=== PATIENT | male | born 1935 | race Caucasian/White ===

== ENCOUNTER 2017-08-24 12:13 | Emergency (ER) | payer OTHER ==
[2017-08-24] MEDS ORDERED: IBUPROFEN 400 MG TAB ONE (14:03)
--- NOTE | 2017-08-24 14:32 | RAD REPORT ---
EXAM DESCRIPTION: CT - Stone Protocol - 08/24/2017 1:57 pm CLINICAL HISTORY: Fall, right-sided back and flank pain COMPARISON: Two-view chest exam April 29, 2015 TECHNIQUE: CT imaging of the abdomen was performed without oral or IV contrast. All CT scans are performed using dose optimization technique as appropriate and may include automated exposure control or mA/KV adjustment according to patient size. FINDINGS: No pneumothorax or pleural effusion. Fibrotic lung changes are present. Minimal pleural th ickening identified. Posterior right twelfth rib is fractured. There is a fracture of the right trans verse process at L2. Prominent facet joint degenerative change throughout the lumbar spine. No pars d efects seen. . Approximately 30% compression fracture deformity of the T12 body is present. Posterior wall height is preserved. The wedging is slightly worse than 2016. Given the recent trauma history, worsening of a preexisting fracture is possible. Liver and spleen show no suspicious findings. Very little pancreatic tissue is present with a pronou nced fatty replacement pattern seen. Gallbladder and biliary tree are also without suspicious finding . No hydronephrosis or suspicious mass in either kidney. Isodense masses and pyelonephritis are not exc luded. A 3.2 centimeter round low-attenuation mass lower pole right kidney is believed to be an incid ental cyst. Areas of cortical thinning are seen in the lateral and superior right kidney. No retroper itoneal hematoma. Paraspinal musculature and oblique abdominal wall musculature show no acute finding s. No traumatic injury to the bowel. No free peritoneal or retroperitoneal fluid or hematoma. No free ai r, free fluid or inflammatory stranding. No hernia, mass or bulky lymphadenopathy. No pathologic bone process identifiable. SI joint degenerative changes are present. No sacral ala fra ctures seen. No proximal femur fracture identified. Overall exam sensitivity is decreased when no contrast is administered. IMPRESSION: Posterior right twelfth rib fracture and right side L2 transverse process fracture. Approximately 30% wedge compression deformity of the T12 body with posterior wall height preserved. T he compression is not new but may be progressive from April 2015. No encroachment into the central canal. No pneumothorax or pleural fluid collection. No acute injury to the solid abdominal visceral or bowel . Very little pancreatic tissue remaining. There is pronounced fatty replacement of the pancreatic tiss ue.
--- NOTE | 2017-08-24 14:38 | ER ---
Nurse's Notes [facility] Name: Louis Rodriguez Age: 81 yrs Sex: Male : 1935 Arrival Date: 08/24/2017 Time: 12:20 Bed 12 Private MD: Diagnosis: Abdominal tenderness;Fall due to bumping against object;Fracture of one rib, right side;Fracture of second lumbar vertebra-Transverse process fracture Presentation: 08/24 12:25 Presenting complaint: Patient states: Right sided low back pain after falling in shower hb 4 days ago. Transition of care: patient was not received from another setting of care. Onset of symptoms was August 20, 2017. Care prior to arrival: None. 12:25 Method Of Arrival: Ambulatory hb 12:25 Acuity: RHONDA 4 hb 12:25 Risk Assessment: Do you want to hurt yourself or someone else? Patient reports no hb desire to harm self or others. Initial Sepsis Screen: Does the patient meet any 2 criteria? No. Patient's initial sepsis screen is negative. Does the patient have a suspected source of infection? No. Patient's initial sepsis screen is negative. Historical: - Allergies: 12:28 Demerol; hb - Immunization history:: Adult Immunizations up to date. - Social history:: Smoking status: Patient/guardian denies using tobacco. - Family history:: not pertinent. - Ebola Screening: : No symptoms or risks identified at this time. Screenin:45 Abuse screen: Denies threats or abuse. Denies injuries from another. Nutritional hb screening: No deficits noted. Tuberculosis screening: No symptoms or risk factors identified. Fall Risk None identified. Assessment: 12:40 General: Appears in no apparent distress. Behavior is calm, cooperative. Pain: Pain hb currently is 9 out of 10 on a pain scale. Neuro: Level of Consciousness is awake, alert, obeys commands, Oriented to person, place, time, situation. Cardiovascular: Capillary refill < 3 seconds Patient's skin is warm and dry. Respiratory: Airway is patent Trachea midline Respiratory effort is even, unlabored, Respiratory pattern is regular, symmetrical, Breath sounds are clear bilaterally. GI: No signs and/or symptoms were reported involving the gastrointestinal system. : No signs and/or symptoms were reported regarding the genitourinary system. EENT: No signs and/or symptoms were reported regarding the EENT system. Derm: No signs and/or symptoms reported regarding the dermatologic system. Skin is intact, is healthy with good turgor, Skin is pink, warm \T\ dry. Musculoskeletal: Reports pain in right low back and right mid back. 13:30 Reassessment: Patient appears in no apparent distress at this time. No changes from hb previously documented assessment. Patient and/or family updated on plan of care and expected duration. Pain level reassessed. Patient is alert, oriented x 3, equal unlabored respirations, skin warm/dry/pink. 14:13 Reassessment: Patient appears in no apparent distress at this time. No changes from hb previously documented assessment. Patient and/or family updated on plan of care and expected duration. Pain level reassessed. Patient is alert, oriented x 3, equal unlabored respirations, skin warm/dry/pink. Vital Signs: 12:26 BP 141 / 101; Pulse 86; Resp 20; Temp 98.4; Pulse Ox 96% on R/A; Weight 83.01 kg; hb Height 5 ft. 10 in. (177.80 cm); Pain 9/10; 12:26 Body Mass Index 26.26 (83.01 kg, 177.80 cm) hb ED Course: 12:20 Patient arrived in ED. sb2 12:26 Triage completed. hb 12:27 Arm band placed on left wrist. 12:37 Eugenio Loredo MD is Attending Physician. [facility] 12:45 Patient has correct armband on for positive identification. Call light in reach. hb 13:53 CT completed. Patient tolerated procedure well. Patient moved to CT via wheelchair. mw3 Patient moved back from CT. 13:58 CT Stone Protocol In Process Unspecified. EDMS 14:11 Jessika Leyva, RN is Primary Nurse. hb Administered Medications: 14:05 Drug: Motrin 400 mg Route: PO; hb Outcome: 14:37 Discharge ordered by . antonia 15:35 Patient left the ED. sv Signatures: Dispatcher [employer] EDNuris Moses RN Eugenio Snow MD MD cha Baxter, Heather, RN RN Cristy Ortiz sb2 Debbie Fernandez mw3
--- NOTE | 2017-08-24 14:38 | EDPHYS ---
Physician Documentation [facility] Name: Louis Rodriguez Age: 81 yrs Sex: Male : 1935 Arrival Date: 08/24/2017 Time: 12:20 Bed 12 Private MD: ED Physician Eugenio Loredo HPI: 08/24 13:36 This 81 yrs old Male presents to ER via Ambulatory with complaints of Flank antonia Pain, s/p fall on Wednesday. 13:36 The patient complains of pain in the right mid back and right low back. The pain does antonia not radiate. Onset: The symptoms/episode began/occurred 5 day(s) ago. Modifying factors: The symptoms are alleviated by remaining still, the symptoms are aggravated by movement. Associated signs and symptoms: The patient has no apparent associated signs or symptoms. Severity of pain: At its worst the pain was mild in the emergency department the pain. The patient has not experienced similar symptoms in the past. Historical: - Allergies: 12:28 Demerol; hb - Immunization history:: Adult Immunizations up to date. - Social history:: Smoking status: Patient/guardian denies using tobacco. - Family history:: not pertinent. - Ebola Screening: : No symptoms or risks identified at this time. ROS: 13:36 Constitutional: Negative for fever, chills, and weight loss, Eyes: Negative for injury, antonia pain, redness, and discharge, ENT: Negative for injury, pain, and discharge, Neck: Negative for injury, pain, and swelling, Cardiovascular: Negative for chest pain, palpitations, and edema, Respiratory: Negative for shortness of breath, cough, wheezing, and pleuritic chest pain, : Negative for injury, bleeding, discharge, and swelling, MS/Extremity: Negative for injury and deformity, Skin: Negative for injury, rash, and discoloration, Neuro: Negative for headache, weakness, numbness, tingling, and seizure, Psych: Negative for depression, anxiety, suicide ideation, homicidal ideation, and hallucinations, Allergy/Immunology: Negative for hives, rash, and allergies, Endocrine: Negative for neck swelling, polydipsia, polyuria, polyphagia, and marked weight changes, Hematologic/Lymphatic: Negative for swollen nodes, abnormal bleeding, and unusual bruising. 13:36 Abdomen/GI: Positive for abdominal pain, of the anterior aspect of right lateral abdomen and posterior aspect of right lateral abdomen. 13:36 Back: Positive for decreased range of motion, pain at rest, pain with movement. Exam: 13:36 Constitutional: This is a well developed, well nourished patient who is awake, alert, antonia and in no acute distress. Head/Face: Normocephalic, atraumatic. Eyes: Pupils equal round and reactive to light, extra-ocular motions intact. Lids and lashes normal. Conjunctiva and sclera are non-icteric and not injected. Cornea within normal limits. Periorbital areas with no swelling, redness, or edema. ENT: Nares patent. No nasal discharge, no septal abnormalities noted. Tympanic membranes are normal and external auditory canals are clear. Oropharynx with no redness, swelling, or masses, exudates, or evidence of obstruction, uvula midline. Mucous membranes moist. Neck: Trachea midline, no thyromegaly or masses palpated, and no cervical lymphadenopathy. Supple, full range of motion without nuchal rigidity, or vertebral point tenderness. No Meningismus. Chest/axilla: Normal chest wall appearance and motion. Nontender with no deformity. No lesions are appreciated. Cardiovascular: Regular rate and rhythm with a normal S1 and S2. No gallops, murmurs, or rubs. Normal PMI, no JVD. No pulse deficits. Respiratory: Lungs have equal breath sounds bilaterally, clear to auscultation and percussion. No rales, rhonchi or wheezes noted. No increased work of breathing, no retractions or nasal flaring. Male : Normal genitalia with no discharge or lesions. Skin: Warm, dry with normal turgor. Normal color with no rashes, no lesions, and no evidence of cellulitis. MS/ Extremity: Pulses equal, no cyanosis. Neurovascular intact. Full, normal range of motion. Neuro: Awake and alert, GCS 15, oriented to person, place, time, and situation. Cranial nerves II-XII grossly intact. Motor strength 5/5 in all extremities. Sensory grossly intact. Cerebellar exam normal. Normal gait. Psych: Awake, alert, with orientation to person, place and time. Behavior, mood, and affect are within normal limits. 13:36 Abdomen/GI: Inspection: abdomen appears normal, Bowel sounds: normal, Palpation: moderate abdominal tenderness, in the anterior aspect of right lateral abdomen and posterior aspect of right lateral abdomen, Liver: no appreciated palpable abnormalities, Hernia: not appreciated. Vital Signs: 12:26 BP 141 / 101; Pulse 86; Resp 20; Temp 98.4; Pulse Ox 96% on R/A; Weight 83.01 kg; hb Height 5 ft. 10 in. (177.80 cm); Pain 9/10; 12:26 Body Mass Index 26.26 (83.01 kg, 177.80 cm) MDM: 12:37 Patient medically screened. [facility] 13:36 Data reviewed: vital signs, nurses notes, lab test result(s), radiologic studies. [facility] 08/24 13:41 Order name: Urine Microscopic Only [facility] 08/24 14:03 Order name: Urine Dipstick--Ancillary (enter results) 08/24 13:36 Order name: Urine Dipstick-Ancillary (obtain specimen); Complete Time: 13:57 [facility] 08/24 13:36 Order name: CT Stone Protocol; Complete Time: 14:34 [facility] 08/24 13:41 Order name: INCENTIVE SPIROMETRY [facility] Administered Medications: 14:05 Drug: Motrin 400 mg Route: PO; hb Disposition: 08/24/17 14:37 Discharged to Home. Impression: Abdominal tenderness, Fall due to bumping against object, Fracture of one rib, right side, Fracture of second lumbar vertebra - Transverse process fracture. - Condition is Stable. - Discharge Instructions: Abdominal Pain, Adult, Contusion, Fall Prevention and Home Safety, Contusion, [id number], Fall Prevention and Home Safety, [id number]. - Prescriptions for Tylenol- Codeine #3 300-30 mg Oral Tablet - take 2 tablets by ORAL route every 6 hours As needed; 24 tablet. Motrin IB 200 mg Oral Tablet - take 2 tablet by ORAL route every 6 hours As needed as needed with food; 40 tablet. - Medication Reconciliation Form, Thank You Letter, Antibiotic Education, Prescription Opioid Use form. - Follow up: Private Physician; When: 2 - 3 days; Reason: Recheck today's complaints, Continuance of care, Re-evaluation by your physician. - Problem is new. - Symptoms have improved. Signatures: Dispatcher [employer] Nuris Dillard RN RN sv Anderson, Corey, MD MD cha Baxter, Heather, RN RN hb Corrections: (The following items were deleted from the chart) 15:35 14:37 08/24/2017 14:37 Discharged to Home. Impression: Abdominal tenderness; Fall due sv to bumping against object; Fracture of one rib, right side; Fracture of second lumbar vertebra - Transverse process fracture. Condition is Stable. Discharge Instructions: Abdominal Pain, Adult, Contusion, Fall Prevention and Home Safety, Contusion, [id number], Fall Prevention and Home Safety, [id number]. Prescriptions for Tylenol-Codeine #3 300-30 mg Oral Tablet - take 2 tablets by ORAL route every 6 hours As needed; 24 tablet, Motrin IB 200 mg Oral Tablet - take 2 tablet by ORAL route every 6 hours As needed as needed with food; 40 tablet. and Forms are Medication Reconciliation Form, Thank You Letter, Antibiotic Education, Prescription Opioid Use. Follow up: Private Physician; When: 2 - 3 days; Reason: Recheck today's complaints, Continuance of care, Re-evaluation by your physician. Problem is new. Symptoms have improved. antonia
[2017-08-24 14:46] LABS: Urine Blood TRACE (NEG); Urine Glucose NEGATIVE (NEG); Urine Protein NEGATIVE (NEG); Urine Specific Gravity 1.015 (1.005-1.030); Urine pH 6.5 (5.0-7.0)
[2017-08-24 15:09] LABS: Urine Bacteria <20 /HPF (NONE SEEN); Urine Culture Reflex Order NOT NEEDED; Urine RBC <5 /HPF (NONE SEEN)
== END 2017-08-24 15:35 | disposition home or self-care (01) ==
LOC: ER 12:13
DX: S22.31XA Fracture of one rib, right side, initial encounter for closed fracture (principal); S32.029A Unspecified fracture of second lumbar vertebra, initial encounter for closed fracture; W18.00XA Striking against unspecified object with subsequent fall, initial encounter; Y93.9 Activity, unspecified; Y92.9 Unspecified place or not applicable; Z88.5 Allergy status to narcotic agent
CPT/HCPCS: 74176; 76377; 81003; 81015; 99284